=== PATIENT | female | born 1995 | race Hispanic/Latino ===

== ENCOUNTER 2022-06-18 18:16 | Emergency (ER) | payer OTHER, SELFPAY ==
--- OUTSIDE RECORDS SUMMARY | 2022-06-18 18:23 | XMS REPORT | Continuity of Care Document ---
:1995 Author Organization [facility] t Address [address] [place] [address] [address]. [address] [place] [address] Care Team Providers Name Role Phone Jaylen Ware Attending Clinician JAYLEN MARLOW Attending Clinician Unavailable Pilar Barajas MD Attending Clinician Ultrasound, [facility] Attending Clinician Unavailable Joel Walter MD Attending Clinician Severo Kim MD, [place] Attending Clinician [phone] JOEL WALTER Attending Clinician Unavailable Doctor Unassigned, [place] Attending Clinician Unavailable 3, [facility] Usg Room Attending Clinician Unavailable Kulwinder Guerra MD Attending Clinician Elyse Funk MD Attending Clinician ELYSE FUNK Attending Clinician Unavailable ELYSE FUNK Attending Clinician Unavailable Evi Paredes MD Attending Clinician Pilar Barajas MD Admitting Clinician Payers Payer Name Policy Type Policy Number Effective Date Expiration Date Jaya churchill [place] MELVINS [id number] 2019 HEALTH 00:00:00 Problems Condition Condition Condition Status Onset Resolution Last Treating Co mments Source Name Details Category Date Date Treatment Clinician Date Decreased Decreased Disease Active Uni vers platelet platelet 7-14 ity of count count 00:00: [address] Disease Active Univers (spontaneo (spontaneo 7-13 [place] vaginal [place] vaginal [place] delivery[place] [address] [place] [address] Disease Active Univers delivery delivery 7-13 ity of 00:00: [place] 00 Medical Branch Liveborn Liveborn Disease Active 2020-0 Unive rs infant, of , of 7-13 it y of twin twin 00:00: [place] , , 00 Me dical born in born in [facility] by vaginal by vaginal delivery delivery S/P tubal S/P tubal Disease Active 2020-0 Uni vers ligation ligation 7-13 ity of 00:00: [place] [facility] Obesity Obesity Disease Active 2020-0 Univers (BMI (BMI 7-12 ity of 30-39.9) 30-39.9) 00:00: [place] 00 Medical Branch 34 weeks 34 weeks Disease Active 2020-0 Unive rs gestation gestation 7-12 ity of of of 00:00: [place] 00 [facility] Branch Disease Active 2020-0 Univers labor in labor in 7-12 ity of third third 00:00: [place] trimester trimester 00 [facility] with with Branch delivery delivery Disease Active 2020-0 Univers premature premature 7-12 ity of rupture of rupture of 00:[place] membranes membranes 00 [facility] (PPROM) (PPROM) Branch with onset with onset of labor of labor within 24 within 24 hours of hours of rupture in rupture in third third trimester, trimester, antepartum antepartum Monochorio Monochorio Disease Active 2020-0 U nivers cydney cydney 4-06 ity of diamniotic diamniotic 00:00[place] twin twin 00 Medical gestation gestation Bran ch in second in second trimester trimester Twin Twin Disease Active 2020-0 Univers gestation gestation 3-23 ity of in second in second 00:[place], [place], 00 Me dical unspecifie unspecifie Br anch d multiple d multiple gestation gestation type type Rubella Rubella Disease Active 2020-0 Overview: Univ ers non-immune non-immune 1-14 Address i ty of status, status, 00:00: in PP. [place] antepartum antepartum 00 Me dical Branch Supervisio Supervisio Disease Active 2020-0 U nivers n of high n of high 1-13 ity of risk risk 00:00: [place] 00 [facility] in second in second Bran ch trimester trimester Multiparit Multiparit Disease Active 2020-0 U nivers y y 1-13 ity of 00:00: [address] Branch Overweight Overweight Disease Active 2020-0 U nivers (BMI (BMI 1-13 ity of 25.0-29.9) 25.0-29.9) 00:00: [facility] Anemia, Anemia, Disease Active Univers 8-18 it y of 00:00: [address] Nausea and Nausea and Disease Active U nivers vomiting vomiting 2-25 ity of during during 00:00: [place] 00 Medi hazel prior to prior to Branch 22 weeks 22 weeks gestation gestation Allergies, Adverse Reactions, Alerts Allergy Allergy Status Severity Reaction(s) Onset Inactive Treating Comm ents Source Name Type Date Date Clinician NO KNOWN Drug Active [facility] ALLERGIE Class ity of S [facility] Social History Social Habit Start Date Stop Date Quantity Comments Source ASSERTION 2019-07-10 [facility] 00:00:00 [facility] Exposure to Not sure [facility] SARS-CoV-2 [facility] (event) [facility] Alcohol intake 2020-02-26 2020-02-26 Ex-drinker [facility] 00:00:00 00:00:00 (finding) [facility] Tobacco use and 2020-02-26 2020-02-26 [facility] 00:00:00 [facility] Smoking Status Start Date Stop Date Source Never smoker [facility] Medications Ordered Filled Start Stop Current Ordering Indication Dosage Frequency Signature Comments Components Source Medication Medication Date Date Medication? Clinician (SIG) Name Name bisacodyL Yes 10mg 10 mg, Univer s (DULCOLAX) 02-25 Rectal, ity of suppository 20:15: KAREN [place] 10 mg 08 Starting [facility] 02/26/20 at 1515, Until Discontinu ed, Routine, Constipati on Yes [id number] 1{tbl} Take 1 Univers vitamin 02-25 [id number] tablet by ity o f w/FA tablet 00:00: mouth 00 daily. Medical Branch docusate Yes [id number] 240mg Take 1 Univers calcium 240 02-25 [id number] capsule by ity of mg capsule 00:00: mouth [place] 00 daily as Medical needed for Branch Constipati on. ferrous Yes [id number] 325mg Take 1 Univers sulfate 325 7-14 [id number] tablet by i ty of mg (65 mg 00:00: mouth 2 [place] iron) 00 (two) Medical tablet times Branch daily. ibuprofen 2020-0 Yes [id number] 600mg Take 1 Univers 600 mg 7-14 [id number] tablet by ity of tablet 00:00: mouth [place] 00 every 6 Medical (six) Branch hours as needed (Pain). Take with food or milk. 2020-0 Yes [id number] 1{tbl} Take 1 Univers vitamin -14 [id number] tablet by ity o f w/FA tablet 00:00: mouth [place] 00 daily. Medical Branch docusate 2020-0 Yes [id number] 240mg Take 1 Univers calcium 240 -14 [id number] capsule by ity of mg capsule 00:00: mouth [place] 00 daily as Medical needed for Branch Constipati on. ferrous 2020-0 Yes [id number] 325mg Take 1 Univers sulfate 325 -14 [id number] tablet by i ty of mg (65 mg 00:00: mouth 2 [place] iron) 00 (two) Medical tablet times Branch daily. ibuprofen 2020-0 Yes [id number] 600mg Take 1 Univers 600 mg 7-14 [id number] tablet by ity of tablet 00:00: mouth [place] 00 every 6 Medical (six) Branch hours as needed (Pain). Take with food or milk. naloxone 2019-0 2020- No .4mg 0.4 mg, Unive rs (NARCAN) 02-24 Slow IV ity of injection 15:10: 15:09 Push, PRN [place] 0.4 mg 19 :19 - SEE Medical INSTRUCTIO Branch NS, Starting Tue02/25/20 at 1010, Until Tue02/27/20 at 1009, Routine, Analgesia Recovery, PACU diphenhydrA 2019-0 2020- No 25mg 25 mg, Uni vers MINE 02-24 Slow IV ity of (BENADRYL) 15:10: 15:09 Push, [place] injection 18 :18 Q4HPRN, Medical 25 mg Starting Branch Tue02/25/20 at 1010, Until Tue02/26/20 at 1009, Routine, Itching, PACU bupivacaine 2020-0 Yes PRN, Univer s (preserv 02-24 Starting ity of free) 14:02: Tue [place] (SENSORCAIN 00 02/25/20 at Wi dical E MPF) 0.25 0902, Branch % (2.5 Until mg/mL) Discontinu injection ed, Routine, Intra-op sodium 2020-0 2020- No 30mL 30 mL, Univers citrate-cit 02-24 Oral, ity of lin acid 14:00: 12:50 ONCE, 1 [place] (BICITRA) 00 :00 dose, Mon Medic al 500-334 02/25/20 at Branch mg/5 mL 0900, solution 30 Routine mL HYDROcodone 2020-0 Yes 2{tbl} 2 tablet, Univers -acetaminop 02-24 Oral, ity of hen (NORCO 13:05: Q6HPRN, [place] 5) 5-325 mg 30 Starting Medi hazel tablet 2 Mon Branch tablet 02/25/20 at 0805, Until Discontinu ed, Routine, Pain (scale 7-10) HYDROcodone 2020-0 Yes 1{tbl} 1 tablet, Univers -acetaminop 02-24 Oral, ity of hen (NORCO 13:05: Q6HPRN, [place] 5) 5-325 mg 29 Starting Medi hazel tablet 1 Mon Branch tablet 02/25/20 at 0805, Until Discontinu ed, Routine, Pain (scale 4-6) rho(D) 2020-0 Yes 300ug 300 mcg, Univer s immune 02-24 Intramuscu ity of globulin 07:19: lar, ONCE, [place] (RHOGAM) 05 For 1 Medical syringe 300 dose, Branch mcg Conditiona l, Routine ibuprofen 2020-0 Yes 600mg 600 mg, Univ ers (IBU) 02-24 Oral, ity of tablet 600 07:19: Q6HPRN, [place] mg 00 Starting Medical Mon Branch 02/25/20 at 0219, Until Discontinu ed, Routine, Pain (scale 4-6) acetaminoph 2020-0 Yes 650mg 650 mg, Un barbara en 02-24 Oral, ity of (TYLENOL) 07:19: Q6HPRN, [place] tablet 650 00 Starting Medic al mg Mon Branch 02/25/20 at 0219, Until Discontinu ed, Routine, Pain (scale 1-3) diphenhydrA 2020-0 Yes 25mg 25 mg, Univ ers MINE 02-24 Oral, ity of (BENADRYL) 07:19: Q6HPRN, [place] tablet 25 00 Starting Medica l mg Mon Branch 02/25/20 at 021, Until Discontinu ed, Routine, Sleep, Itching diphenhydrA 2020-0 Yes 25mg 25 mg, IV U nivers MINE-0.9 % 7 Piggyback, ity of sod.chlr 07:19: Administer [place] (BENADRYL) 00 over 30 Medica l 25 mg/50 mL Minutes, Bran ch piggyback Q6HPRN, 25 mg Starting 02/25/20 at 021, Until Discontinu ed, Routine, Itching ondansetron 2020-0 Yes 4mg 4 mg, Slow Univers (ZOFRAN 7 IV Push, ity of (PF)) 07:19: Q8HPRN, [place] injection 4 00 Starting Medi hazel mg [place] [facility] 02/25/20 at 021, Until Discontinu ed, Routine, Nausea and Vomiting (N/V) simethicone 2020-0 Yes 160mg 160 mg, Un barbara (GAS RELIEF - Oral, ity of (SIMETHICON 07:19: PC+HSPRN, [place] E)) 00 Starting Medical chewable Mon Branch tablet 160 02/25/20 at mg 021, Until Discontinu ed, Routine, Gas docusate 2020-0 Yes 240mg 240 mg, Unive rs calcium 7- Oral, ity of (SURFAK) 07:19: QDAILYPRN, [place] capsule 240 00 Starting Medi hazel mg [facility] Branch 02/25/20 at 021, Until Discontinu ed, Routine, Constipati on magnesium 2020-0 Yes 30mL 30 mL, Univer s hydroxide 7-13 Oral, ity of (MILK OF 07:19: QDAILYPRN, [place] MAGNESIA) 00 Starting Medica l 400 mg/5 mL Mon [place] suspension 02/25/20 at 30 mL 218, Until Discontinu ed, Routine, Constipati on benzocaine- 2020-0 Yes Topical, Un barbara menthol 7-13 PRN, ity of (DERMOPLAST 07:19: [place] ) 20-0.5 % 00 Mon Medical topical 02/25/20 at Branch spray 021, Until Discontinu ed, Routine, Perineum discomfort LR 1000 mL 2020-0 2020- No at 125 Univ ers + oxytocin 02-24-13 mL/hr, IV ity of 20 units IV 02:00: 02:42 Infusion, [place] Solution 00 :00 ONCE, 1 Medical dose, [facility] 02/24/20 at 2100, Routine ibuprofen 2019- 2020- No 600mg 600 mg, Uni vers (IBU) 02-24 Oral, ity of tablet 600 01:54: 07:19 Q6HPRN, [place] mg 31 :05 Starting Medical [facility] 02/24/20 at 2054, Until Tue02/25/20 at 0219, Routine, Pain (scale 1-3) lactated 2020- No 500mL at 999 Unive rs ringers IV 02-23 mL/hr, 500 it y of infusion 16:00: 20:12 mL, IV [place] 500 mL 00 :00 Infusion, Medical ONCE, 1 Branch dose, [place] 02/24/20 at 1100, Routine ondansetron 2019- No 4mg 4 mg, Slow Univers (ZOFRAN 02-23 IV Push, ity of (PF)) 15:45: 21:32 ONCE, 1 [place] injection 4 00 :00 dose, [place] Med ical mg 02/24/20 at Branch 1045, Routine LR 1000 mL 2020- No 2mU/min at 6-120 Univers + oxytocin 02-2313 mL/hr, IV ity of 20 units IV 14:52: 07:19 Infusion, [place] Solution 22 :05 TITRATE, Medical Starting Branch [place] 02/24/20 at 0952, Until Tue02/25/20 at 0219, LAR[place] sodium 2020- No 30mL 30 mL, Univers citrate-cit 02-23 Oral, ity of lin acid 14:52: 20:11 PRE-PROCED [place] (BICITRA) 17 :00 URE ONCE, Medic al 500-334 1 dose, Branch mg/5 mL Starting solution 30 Sun mL 02/24/20 at 0952, Until Discontinu ed, Routine, Surgery/Pr ocedure D5W-LR IV 2019-0 2020- No 1000mL at 125 Uni vers infusion 02-23-13 mL/hr, IV ity o f 1,000 mL 14:45: 07:19 Infusion, [place] 00 :05 CONTINUOUS Medical , Starting Branch 02/24/20 at 0945, Until 02/25/20 at 0219, Routine proMETHazin 2019-0 Yes [id number] 25mg Take 1 Univers e 25 mg 2-10 tablet by ity of tablet 00:00: mouth [place] 00 every 4 Medical (four) Branch hours as needed for Nausea and Vomiting (N/V). 2019-0 Yes [id number] 1{packe Take 1 Univers vit 2-10 t} Packet by ity of 33-iron-fol 00:00: mouth [place] ic-dha 00 daily. Medical (SELECT-OB Branch + DHA) 29 mg iron-1 mg -250 mg combo pack proMETHazin 2019-0 Yes [id number] 25mg Take 1 Univers e 25 mg 2-10 tablet by ity of tablet 00:00: mouth [place] 00 every 4 Medical (four) Branch hours as needed for Nausea and Vomiting (N/V). 2019-0 Yes [id number] 1{packe Take 1 Univers vit 2-10 t} Packet by ity of 33-iron-fol 00:00: mouth [place] ic-dha 00 daily. Medical (SELECT-OB Branch + DHA) 29 mg iron-1 mg -250 mg combo pack proMETHazin 2019-0 Yes [id number] 25mg Take 1 Univers e 25 mg 2-10 tablet by ity of tablet 00:00: mouth [place] 00 every 4 Medical (four) Branch hours as needed for Nausea and Vomiting (N/V). 2019-0 Yes [id number] 1{packe Take 1 Univers vit 2-10 t} Packet by ity of 33-iron-fol 00:00: mouth [place] ic-dha 00 daily. Medical (SELECT-OB Branch + DHA) 29 mg iron-1 mg -250 mg combo pack proMETHazin 2020-0 Yes [id number] 25mg Take 1 Univers e 25 mg 2-10 tablet by ity of tablet 00:00: mouth [place] 00 every 4 Medical (four) Branch hours as needed for Nausea and Vomiting (N/V). 2019-0 Yes [id number] 1{packe Take 1 Univers vit 2-10 t} Packet by ity of 33-iron-fol 00:00: mouth [place] ic-dha 00 daily. Medical (SELECT-OB Branch + DHA) 29 mg iron-1 mg -250 mg combo pack proMETHazin 2020-0 Yes [id number] 25mg Take 1 Univers e 25 mg 2-10 tablet by ity of tablet 00:00: mouth [place] 00 every 4 Medical (four) Branch hours as needed for Nausea and Vomiting (N/V). 2019-0 Yes [id number] 1{packe Take 1 Univers vit 2-10 t} Packet by ity of 33-iron-fol 00:00: mouth [place] ic-dha 00 daily. Medical (SELECT-OB Branch + DHA) 29 mg iron-1 mg -250 mg combo pack proMETHazin 2020-0 Yes [id number] 25mg Take 1 Univers e 25 mg 2-10 tablet by ity of tablet 00:00: mouth [place] 00 every 4 Medical (four) Branch hours as needed for Nausea and Vomiting (N/V). 0 Yes [id number] 1{packe Take 1 Univers vit 2-10 t} Packet by ity of 33-iron-fol 00:00: mouth [place] ic-dha 00 daily. Medical (SELECT-OB Branch + DHA) 29 mg iron-1 mg -250 mg combo pack proMETHazin 2020-0 Yes [id number] 25mg Take 1 Univers e 25 mg 2-10 tablet by ity of tablet 00:00: mouth [place] 00 every 4 Medical (four) Branch hours as needed for Nausea and Vomiting (N/V). 0 Yes [id number] 1{packe Take 1 Univers vit 2-10 t} Packet by ity of 33-iron-fol 00:00: mouth [place] ic-dha 00 daily. Medical (SELECT-OB Branch + DHA) 29 mg iron-1 mg -250 mg combo pack proMETHazin 2020-0 Yes [id number] 25mg Take 1 Univers e 25 mg 2-10 tablet by ity of tablet 00:00: mouth [place] 00 every 4 Medical (four) Branch hours as needed for Nausea and Vomiting (N/V). proMETHazin 2020-0 Yes [id number] 25mg Take 1 Univers e 25 mg 2-10 tablet by ity of tablet 00:00: mouth [place] 00 every 4 Medical (four) Branch hours as needed for Nausea and Vomiting (N/V). 2019-0 Yes [id number] 1{packe Take 1 Univers vit 2-10 t} Packet by ity of 33-iron-fol 00:00: mouth [place] ic-dha 00 daily. Medical (SELECT-OB Branch + DHA) 29 mg iron-1 mg -250 mg combo pack proMETHazin 2020-0 Yes [id number] 25mg Take 1 Univers e 25 mg 2-10 tablet by ity of tablet 00:00: mouth [place] 00 every 4 Medical (four) Branch hours as needed for Nausea and Vomiting (N/V). 2020-0 Yes [id number] 1{packe Take 1 Univers vit 2-10 t} Packet by ity of 33-iron-fol 00:00: mouth [place] ic-dha 00 daily. Medical (SELECT-OB Branch + DHA) 29 mg iron-1 mg -250 mg combo pack 2020-0 Yes [id number] 1{packe Take 1 Univers vit 2-10 t} Packet by ity of 33-iron-fol 00:00: mouth [place] ic-dha 00 daily. Medical (SELECT-OB Branch + DHA) 29 mg iron-1 mg -250 mg combo pack proMETHazin 2020-0 Yes [id number] 25mg Take 1 Univers e 25 mg 2-10 tablet by ity of tablet 00:00: mouth [place] 00 every 4 Medical (four) Branch hours as needed for Nausea and Vomiting (N/V). 2020-0 Yes [id number] 1{packe Take 1 Univers vit 2-10 t} Packet by ity of 33-iron-fol 00:00: mouth [place] ic-dha 00 daily. Medical (SELECT-OB Branch + DHA) 29 mg iron-1 mg -250 mg combo pack proMETHazin 2020-0 Yes [id number] 25mg Take 1 Univers e 25 mg 2-10 tablet by ity of tablet 00:00: mouth [place] 00 every 4 Medical (four) Branch hours as needed for Nausea and Vomiting (N/V). 2020-0 Yes [id number] 1{packe Take 1 Univers vit 2-10 t} Packet by ity of 33-iron-fol 00:00: mouth [place] ic-dha 00 daily. Medical (SELECT-OB Branch + DHA) 29 mg iron-1 mg -250 mg combo pack proMETHazin 2020-0 Yes [id number] 25mg Take 1 Univers e 25 mg 2-10 tablet by ity of tablet 00:00: mouth [place] 00 every 4 Medical (four) Branch hours as needed for Nausea and Vomiting (N/V). 2019-0 Yes [id number] 1{packe Take 1 Univers vit 2-10 t} Packet by ity of 33-iron-fol 00:00: mouth [place] ic-dha 00 daily. Medical (SELECT-OB Branch + DHA) 29 mg iron-1 mg -250 mg combo pack proMETHazin 2020-0 Yes [id number] 25mg Take 1 Univers e 25 mg 2-10 tablet by ity of tablet 00:00: mouth [place] 00 every 4 Medical (four) Branch hours as needed for Nausea and Vomiting (N/V). 2019- Yes [id number] 1{packe Take 1 Univers vit 2-10 t} Packet by ity of 33-iron-fol 00:00: mouth [place] ic-dha 00 daily. Medical (SELECT-OB Branch + DHA) 29 mg iron-1 mg -250 mg combo pack proMETHazin 2020-0 Yes [id number] 25mg Take 1 Univers e 25 mg 2-10 tablet by ity of tablet 00:00: mouth [place] 00 every 4 Medical (four) Branch hours as needed for Nausea and Vomiting (N/V). Yes [id number] 1{packe Take 1 Univers vit 2-10 t} Packet by ity of 33-iron-fol 00:00: mouth [place] ic-dha 00 daily. Medical (SELECT-OB Branch + DHA) 29 mg iron-1 mg -250 mg combo pack proMETHazin 2020-0 Yes [id number] 25mg Take 1 Univers e 25 mg 2-10 tablet by ity of tablet 00:00: mouth [place] 00 every 4 Medical (four) Branch hours as needed for Nausea and Vomiting (N/V). 2019-0 Yes [id number] 1{packe Take 1 Univers vit 2-10 t} Packet by ity of 33-iron-fol 00:00: mouth [place] ic-dha 00 daily. Medical (SELECT-OB Branch + DHA) 29 mg iron-1 mg -250 mg combo pack proMETHazin 2020-0 Yes [id number] 25mg Take 1 Univers e 25 mg 2-10 tablet by ity of tablet 00:00: mouth [place] 00 every 4 Medical (four) Branch hours as needed for Nausea and Vomiting (N/V). 2019-0 Yes [id number] 1{packe Take 1 Univers vit 2-10 t} Packet by ity of 33-iron-fol 00:00: mouth [place] ic-dha 00 daily. Medical (SELECT-OB Branch + DHA) 29 mg iron-1 mg -250 mg combo pack proMETHazin 2020-0 Yes [id number] 25mg Take 1 Univers e 25 mg 2-10 tablet by ity of tablet 00:00: mouth [place] 00 every 4 Medical (four) Branch hours as needed for Nausea and Vomiting (N/V). 2019-0 Yes [id number] 1{packe Take 1 Univers vit 2-10 t} Packet by ity of 33-iron-fol 00:00: mouth [place] ic-dha 00 daily. Medical (SELECT-OB Branch + DHA) 29 mg iron-1 mg -250 mg combo pack proMETHazin 2020-0 Yes [id number] 25mg Take 1 Univers e 25 mg 2-10 tablet by ity of tablet 00:00: mouth [place] 00 every 4 Medical (four) Branch hours as needed for Nausea and Vomiting (N/V). 2019-0 Yes [id number] 1{packe Take 1 Univers vit 2-10 t} Packet by ity of 33-iron-fol 00:00: mouth [place] ic-dha 00 daily. Medical (SELECT-OB Branch + DHA) 29 mg iron-1 mg -250 mg combo pack proMETHazin 2020-0 Yes [id number] 25mg Take 1 Univers e 25 mg 2-10 tablet by ity of tablet 00:00: mouth [place] 00 every 4 Medical (four) Branch hours as needed for Nausea and Vomiting (N/V). 2019-0 Yes [id number] 1{packe Take 1 Univers vit 2-10 t} Packet by ity of 33-iron-fol 00:00: mouth [place] ic-dha 00 daily. Medical (SELECT-OB Branch + DHA) 29 mg iron-1 mg -250 mg combo pack proMETHazin 2020-0 Yes [id number] 25mg Take 1 Univers e 25 mg 2-10 tablet by ity of tablet 00:00: mouth [place] 00 every 4 Medical (four) Branch hours as needed for Nausea and Vomiting (N/V). 2019-0 Yes [id number] 1{packe Take 1 Univers vit 2-10 t} Packet by ity of 33-iron-fol 00:00: mouth [place] ic-dha 00 daily. Medical (SELECT-OB Branch + DHA) 29 mg iron-1 mg -250 mg combo pack proMETHazin 2020-0 Yes [id number] 25mg Take 1 Univers e 25 mg 2-10 tablet by ity of tablet 00:00: mouth [place] 00 every 4 Medical (four) Branch hours as needed for Nausea and Vomiting (N/V). 2019-0 Yes [id number] 1{packe Take 1 Univers vit 2-10 t} Packet by ity of 33-iron-fol 00:00: mouth [place] ic-dha 00 daily. Medical (SELECT-OB Branch + DHA) 29 mg iron-1 mg -250 mg combo pack proMETHazin 2020-0 Yes [id number] 25mg Take 1 Univers e 25 mg 2-10 tablet by ity of tablet 00:00: mouth [place] 00 every 4 Medical (four) Branch hours as needed for Nausea and Vomiting (N/V). 2019-0 Yes [id number] 1{packe Take 1 Univers vit 2-10 t} Packet by ity of 33-iron-fol 00:00: mouth [place] ic-dha 00 daily. Medical (SELECT-OB Branch + DHA) 29 mg iron-1 mg -250 mg combo pack proMETHazin 2020-0 Yes [id number] 25mg Take 1 Univers e 25 mg 2-10 tablet by ity of tablet 00:00: mouth [place] 00 every 4 Medical (four) Branch hours as needed for Nausea and Vomiting (N/V). 2019-0 Yes [id number] 1{packe Take 1 Univers vit 2-10 t} Packet by ity of 33-iron-fol 00:00: mouth [place] ic-dha 00 daily. Medical (SELECT-OB Branch + DHA) 29 mg iron-1 mg -250 mg combo pack proMETHazin 2020-0 Yes [id number] 25mg Take 1 Univers e 25 mg 2-10 tablet by ity of tablet 00:00: mouth [place] 00 every 4 Medical (four) Branch hours as needed for Nausea and Vomiting (N/V). 2020-0 Yes [id number] 1{packe Take 1 Univers vit 2-10 t} Packet by ity of 33-iron-fol 00:00: mouth [place] ic-dha 00 daily. Medical (SELECT-OB Branch + DHA) 29 mg iron-1 mg -250 mg combo pack proMETHazin 2020-0 Yes [id number] 25mg Take 1 Univers e 25 mg 2-10 tablet by ity of tablet 00:00: mouth [place] 00 every 4 Medical (four) Branch hours as needed for Nausea and Vomiting (N/V). 2019-0 Yes [id number] 1{packe Take 1 Univers vit 2-10 t} Packet by ity of 33-iron-fol 00:00: mouth [place] ic-dha 00 daily. Medical (SELECT-OB Branch + DHA) 29 mg iron-1 mg -250 mg combo pack proMETHazin 2020-0 Yes [id number] 25mg Take 1 Univers e 25 mg 2-10 tablet by ity of tablet 00:00: mouth [place] 00 every 4 Medical (four) Branch hours as needed for Nausea and Vomiting (N/V). 2019-0 Yes [id number] 1{packe Take 1 Univers vit 2-10 t} Packet by ity of 33-iron-fol 00:00: mouth [place] ic-dha 00 daily. Medical (SELECT-OB Branch + DHA) 29 mg iron-1 mg -250 mg combo pack proMETHazin 2020-0 Yes [id number] 25mg Take 1 Univers e 25 mg 2-10 tablet by ity of tablet 00:00: mouth [place] 00 every 4 Medical (four) Branch hours as needed for Nausea and Vomiting (N/V). 2019-0 Yes [id number] 1{packe Take 1 Univers vit 2-10 t} Packet by ity of 33-iron-fol 00:00: mouth [place] ic-dha 00 daily. Medical (SELECT-OB Branch + DHA) 29 mg iron-1 mg -250 mg combo pack proMETHazin 2020-0 Yes [id number] 25mg Take 1 Univers e 25 mg 2-10 tablet by ity of tablet 00:00: mouth [place] 00 every 4 Medical (four) Branch hours as needed for Nausea and Vomiting (N/V). 2020-0 Yes [id number] 1{packe Take 1 Univers vit 2-10 t} Packet by ity of 33-iron-fol 00:00: mouth [place] ic-dha 00 daily. Medical (SELECT-OB Branch + DHA) 29 mg iron-1 mg -250 mg combo pack proMETHazin 2020-0 Yes [id number] 25mg Take 1 Univers e 25 mg 2-10 tablet by ity of tablet 00:00: mouth [place] 00 every 4 Medical (four) Branch hours as needed for Nausea and Vomiting (N/V). Yes [id number] 1{packe Take 1 Univers vit 2-10 t} Packet by ity of 33-iron-fol 00:00: mouth [place] ic-dha 00 daily. Medical (SELECT-OB Branch + DHA) 29 mg iron-1 mg -250 mg combo pack proMETHazin Yes [id number] 25mg Take 1 Univers e 25 mg 2-10 tablet by ity of tablet 00:00: mouth [place] 00 every 4 Medical (four) Branch hours as needed for Nausea and Vomiting (N/V). Yes [id number] 1{packe Take 1 Univers vit 2-10 t} Packet by ity of 33-iron-fol 00:00: mouth [place] ic-dha 00 daily. Medical (SELECT-OB Branch + DHA) 29 mg iron-1 mg -250 mg combo pack proMETHazin 2020- No [id number] 25mg Take 1 Univers e 25 mg 2-10 07-14 tablet by ity of tablet 00:00: 00:00 mouth [place] 00 :00 every 4 Medical (four) Branch hours as needed for Nausea and Vomiting (N/V). 2020- No [id number] 1{packe Take 1 Univers vit 2-10 07-14 t} Packet by ity of 33-iron-fol 00:00: 00:00 [place] ic-dha 00 :00 daily. Medical (SELECT-OB Branch + DHA) 29 mg iron-1 mg -250 mg combo pack ferrous 2020- No 325mg Take 1 Univer s sulfate 325 8-18 02-10 tablet by it y of mg (65 mg 00:00: 00:00 mouth [place] iron) 00 :00 daily. Medical tablet Branch Yes [id number] 1{tbl} Take 1 Tab Univers multivitami 2-25 09 by mouth [place]y of [place] ( [place] 00 Medical tablet Branch Yes [id number] 1{tbl} Take 1 Tab Univers multivitami 2-25 09 by mouth [place]y of [place] ( [place] 00 Medical tablet Branch Yes [id number] 1{tbl} Take 1 Tab Univers multivitami 2-25 09 by mouth ity of [place] ( [place] 00 Medical tablet Branch Yes [id number] 1{tbl} Take 1 Tab Univers multivitami 2-25 09 by mouth ity of n ( [place] 00 Medical tablet Branch Yes [id number] 1{tbl} Take 1 Tab Univers multivitami 2-25 09 by mouth ity of n ( [place] 00 Medical tablet Branch Yes [id number] 1{tbl} Take 1 Tab Univers multivitami 2-25 09 by mouth ity of [place] ( [place] 00 Medical tablet Kevin Yes [id number] 1{tbl} Take 1 Tab Univers multivitami 2-25 09 by mouth ity of n ( [place] 00 Medical tablet Kevin Yes [id number] 1{tbl} Take 1 Tab Univers multivitami 2-25 09 by mouth ity of [place] ( [place] 00 Medical tablet Kevin Yes [id number] 1{tbl} Take 1 Tab Univers multivitami 2-25 09 by mouth ity of [place] ( [place] 00 Medical tablet Kevin Yes [id number] 1{tbl} Take 1 Tab Univers multivitami 2-25 09 by mouth ity of [place] ( [place]. [place] 00 Medical tablet Branch Yes [id number] 1{tbl} Take 1 Tab Univers multivitami 2-25 09 by mouth ity of n ( [place]. [place] VIT[place] 00 Medical tablet Branch Yes [id number] 1{tbl} Take 1 Tab Univers multivitami 2-25 09 by mouth ity of n ( [place]. [place] 00 Medical tablet Branch Yes [id number] 1{tbl} Take 1 Tab Univers multivitami 2-25 09 by mouth ity of n ( [place]. [place] 00 Medical tablet Branch Yes [id number] 1{tbl} Take 1 Tab Univers multivitami 2-25 09 by mouth ity of n ( [place]. [place] 00 Medical tablet Branch Yes [id number] 1{tbl} Take 1 Tab Univers multivitami 2-25 09 by mouth ity of n ( [place]. [place] 00 Medical tablet Branch Yes [id number] 1{tbl} Take 1 Tab Univers multivitami 2-25 09 by mouth ity of n ( [place]. [place] 00 Medical tablet Branch Yes [id number] 1{tbl} Take 1 Tab Univers multivitami 2-25 09 by mouth ity of n ( [place]. [place] 00 Medical tablet Branch Yes [id number] 1{tbl} Take 1 Tab Univers multivitami 2-25 09 by mouth ity of n ( [place]. [place] 00 Medical tablet Branch Yes [id number] 1{tbl} Take 1 Tab Univers multivitami 2-25 09 by mouth ity of n ( [place]. [place] 00 Medical tablet Branch Yes [id number] 1{tbl} Take 1 Tab Univers multivitami 2-25 09 by mouth ity of n ( [place]. [place] 00 Medical tablet Branch Yes [id number] 1{tbl} Take 1 Tab Univers multivitami 2-25 09 by mouth ity of n ( [place]: [place]. [place] VIT[place] 00 Medical tablet Branch Yes [id number] 1{tbl} Take 1 Tab Univers multivitami 2-25 09 by mouth ity of n ( [place]: [place]. [place]IT[place] 00 Medical tablet Branch Yes [id number] 1{tbl} Take 1 Tab Univers multivitami 2-25 09 by mouth ity of n ( 00:[place]: [place]. [place] 00 Medical tablet Branch Yes [id number] 1{tbl} Take 1 Tab Univers multivitami 2-25 09 by mouth ity of n ( [place]: [place]. [place]IT[place] 00 Medical tablet Kevin Yes [id number] 1{tbl} Take 1 Tab Univers multivitami 2-25 09 by mouth ity of n ( [place]: [place]. [place] 00 Medical tablet Branch Yes [id number] 1{tbl} Take 1 Tab Univers multivitami 2-25 09 by mouth ity of n ( 00:[place]: [place]. [place] VIT[place]IN) 00 Medical tablet Branch Yes [id number] 1{tbl} Take 1 Tab Univers multivitami 2-25 09 by mouth ity of n ( 00:[place]: [place]. [place]IT[place]IN[place] 00 Medical tablet Kevin Yes [id number] 1{tbl} Take 1 Tab Univers multivitami 2-25 09 by mouth ity of n ( 00:[place]: [place]. [place]IT[place] 00 Medical tablet Kevin Yes [id number] 1{tbl} Take 1 Tab Univers multivitami 2-25 09 by mouth ity of n ( 00:[place]: [place]. [place] 00 Medical tablet Kevin Yes [id number] 1{tbl} Take 1 Tab Univers multivitami 2-25 09 by mouth ity of n ( 00:[place]: [place]. [place] 00 Medical tablet [place] Yes [id number] 1{tbl} Take 1 Tab Univers multivitami 2-25 09 by mouth ity of n ( [place]: [place]. [place] 00 Medical tablet Kevin 2020- No [id number] 1{tbl} Take 1 Tab Univers multivitami 2-25 07-14 09 by mouth ity of n ( 00:00: 00:00 daily. [place] VITAMIN) 00 :00 [facility] Immunizations Ordered Filled Immunization Date Status Comments [facility] e Immunization Name Name TDAP (ADACEL) 2020-01-21 Completed [place] of VACCINE 00:00:00 [facility] TDAP (ADACEL) 2020-01-21 Completed University of VACCINE 00:00:00 [place] [facility] TDAP (ADACEL) 2020-01-21 Completed University of VACCINE 00:00:00 [place] [facility] TDAP (ADACEL) 2020-01-21 Completed University of VACCINE 00:00:00 [place] [facility] TDAP (ADACEL) 2020-01-21 Completed University of VACCINE 00:00:00 [place] [facility] TDAP (ADACEL) 2020-01-21 Completed University of VACCINE 00:00:00 [place] [facility] TDAP (ADACEL) 2020-01-21 Completed University of VACCINE 00:00:00 [place] [facility] TDAP (ADACEL) 2020-01-21 Completed University of VACCINE 00:00:00 [place] [facility] TDAP (ADACEL) 2020-01-21 Completed University of VACCINE 00:00:00 [place] [facility] TDAP (ADACEL) 2020-01-21 Completed University of VACCINE 00:00:00 [facility] TDAP (ADACEL) 2020-01-21 Completed University of VACCINE 00:00:00 [facility] Branch Tdap 2016-01-13 Completed University of 00:00:00 [place] [facility] Tdap 2016-01-13 Completed University of 00:00:00 [place] [facility] Tdap 2016-01-13 Completed University of 00:00:00 [place] [facility] Tdap 2016-01-13 Completed University of 00:00:00 [place] [facility] Tdap 2016-01-13 Completed University of 00:00:00 [place] [facility] Tdap 2016-01-13 Completed University of 00:00:00 [facility] Branch Tdap 2016-01-13 Completed University of 00:00:00 [place] [facility] Tdap 2016-01-13 Completed University of 00:00:00 [place] [facility] Tdap 2016-01-13 Completed University of 00:00:00 [place] [facility] Tdap 2016-01-13 Completed University of 00:00:00 [place] [facility] Tdap 2016-01-13 Completed University of 00:00:00 [place] [facility] Tdap 2016-01-13 Completed University of 00:00:00 [place] [facility] Tdap 2016-01-13 Completed University of 00:00:00 [facility] Branch Tdap 2016-01-13 Completed University of 00:00:00 [facility] Branch Tdap 2016-01-13 Completed University of 00:00:00 [place] [facility] Tdap 2016-01-13 Completed University of 00:00:00 [facility] Branch Tdap 2016-01-13 Completed University of 00:00:00 [facility] Branch Tdap 2016-01-13 Completed University of 00:00:00 [place] [facility] Tdap 2016-01-13 Completed University of 00:00:00 [place] [facility] Tdap 2016-01-13 Completed University of 00:00:00 [facility] Branch Tdap 2016-01-13 Completed University of 00:00:00 [facility] Branch TDAP 2016-01-13 Completed University of 00:00:00 [place] [facility] TDAP 2016-01-13 Completed University of 00:00:00 [facility] Branch TDAP 2016-01-13 Completed University of 00:00:00 [facility] Branch Tdap 2016-01-13 Completed University of 00:00:00 [facility] Branch TDAP 2016-01-13 Completed University of 00:00:00 [facility] TDAP 2016-01-13 Completed University of 00:00:00 [facility] Branch Tdap 2016-01-13 Completed University of 00:00:00 [facility] Tdap 2016-01-13 Completed University of 00:00:00 [facility] Tdap 2016-01-13 Completed University of 00:00:00 [facility] Tdap 2016-01-13 Completed University of 00:00:00 [facility] Tdap 2016-01-13 Completed University of 00:00:00 [facility] Tdap 2016-01-13 Completed University of 00:00:00 [facility] Vital Signs Vital Name Observation Time Observation Value Comments Source Systolic blood 2020-02-26 21:00:00 120 mm[Hg] Univer sity of pressure [facility] Diastolic blood 2020-02-26 21:00:00 68 mm[Hg] Unive rsity of pressure [facility] Heart rate 2020-02-26 21:00:00 85 /min [facility] Body temperature 2020-02-26 21:00:00 36.44 Niru Univ ersity [facility] Respiratory rate 2020-02-26 21:00:00 18 /min [facility] saturation in 2020-02-26 21:00:00 98 /min [facility] Arterial blood by [facility] Pulse oximetry Branch Body height 2020-02-24 14:00:00 154.9 cm [facility] Body weight 2020-02-24 14:00:00 72.576 kg Universi ty of [place] [facility] BMI 2020-02-24 14:00:00 30.25 kg/m2 Universi ty of [place] [facility] Systolic blood 2020-02-12 19:11:00 120 mm[Hg] Univer sity of pressure [place] [facility] Diastolic blood 2020-02-12 19:11:00 67 mm[Hg] Unive rsity of pressure [place] [facility] Heart rate 2020-02-12 19:11:00 81 /min Universi ty of [place] [facility] Body temperature 2020-02-12 19:11:00 36.61 Niru Univ ersity of [place] [facility] Respiratory rate 2020-02-12 19:11:00 16 /min Univ ersity of [place] [facility] Body height 2020-02-12 19:11:00 154.9 cm Universi ty of [place] [facility] Body weight 2020-02-12 19:11:00 72.689 kg [facility]i [facility] [place] [facility] BMI 2020-02-12 19:11:00 30.28 kg/m2 Universi ty [facility] [place] [facility] Systolic blood 2020-01-21 20:03:00 108 mm[Hg] Univer sity of pressure [place] [facility] Diastolic blood 2020-01-21 20:03:00 78 mm[Hg] Unive rsity of pressure [place] [facility] Heart rate 2020-01-21 20:03:00 92 /min Universi ty [facility] [place] [facility] Body temperature 2020-01-21 20:03:00 36.56 Niru Univ ersity of [place] [facility] Respiratory rate 2020-01-21 20:03:00 16 /min Univ ersity of [place] [facility] Body height 2020-01-21 20:03:00 154.9 cm Universi ty of [place] [facility] Body weight 2020-01-21 20:03:00 70.421 kg Universi ty of [place] [facility] BMI 2020-01-21 20:03:00 29.33 kg/m2 Universi ty [facility] [place] [facility] Diastolic blood 2019-11-19 18:11:00 71 mm[Hg] Unive rsity of pressure [place] [facility] Heart rate 2019-11-19 18:11:00 83 /min Universi ty of [place] [facility] Body temperature 2019-11-19 18:11:00 36.72 Niru Univ ersity of [place] [facility] Respiratory rate 2019-11-19 18:11:00 16 /min Univ ersity of [place] [facility] Body height 2019-11-19 18:11:00 154.9 cm Universi ty of [place] [facility] Body weight 2019-11-19 18:11:00 67.586 kg Universi ty of [place] [facility] BMI 2019-11-19 18:11:00 28.15 kg/m2 Universi ty of [place] [facility] Systolic blood 2019-11-19 18:11:00 124 mm[Hg] Univer sity of pressure [facility] Branch Systolic blood 2019-11-05 19:47:00 125 mm[Hg] Univer sity of pressure [place] [facility] Diastolic blood 2019-11-05 19:47:00 78 mm[Hg] Unive rsity of pressure [facility] Branch Heart rate 2019-11-05 19:47:00 100 /min Universi ty of [facility] Body temperature 2019-11-05 19:47:00 36.39 Niru Univ ersity of [facility] Branch Respiratory rate 2019-11-05 19:47:00 16 /min Univ ersity of [facility] Branch Body height 2019-11-05 19:47:00 154.9 cm Universi ty of [place] [facility] Body weight 2019-11-05 19:47:00 64.553 kg [facility]i ty [facility] [place] [facility] BMI 2019-11-05 19:47:00 26.89 kg/m2 [facility] [place] [facility] Systolic blood 2019-09-24 19:25:00 102 mm[Hg] Univer sity of pressure [place] [facility] Diastolic blood 2019-09-24 19:25:00 66 mm[Hg] Unive rsity of pressure [facility] Branch Heart rate 2019-09-24 19:25:00 88 /min Universi ty of [place] [facility] Body temperature 2019-09-24 19:25:00 36.78 Niru Univ ersity of [facility] Branch Respiratory rate 2019-09-24 19:25:00 16 /min Univ ersity of [facility] Branch Body height 2019-09-24 19:25:00 152.4 cm Universi ty of [place] [facility] Body weight 2019-09-24 19:25:00 66.339 kg [facility]i ty [facility] [place] [facility] BMI 2019-09-24 19:25:00 28.56 kg/m2 [facility] [place] [facility] Procedures Procedure Date / Time Performing Clinician Source Performed TUBAL LIGATION 2020-02-25 12:39:00 Chele Hanna [facility] CBC WITH DIFFERENTIAL 2020-02-25 09:05:00 Christiano Finn [facility] VENOUS CORD GAS 2020-02-25 01:30:00 [facility] OR FOR DOUBLE SET UP 2020-02-25 00:47:00 Kulwinder Guerra [facility] DELIVERY [facility] CBC WITH DIFFERENTIAL 2020-02-24 23:35:00 Ángela Zeng [facility] HEPATITIS B SURFACE 2020-02-24 15:02:00 Kalyani Toro Chew [facility] ANTIGEN [facility] HIV 1/2 AG-AB WITH 2020-02-24 15:02:00 Kalyani Toro [facility] REFLEX [facility] GALV ONLY - SYPHILIS 2020-02-24 15:02:00 Muna Sparrow [facility] IGG/IGM [facility] HB ABO GROUPING 2020-02-24 14:47:00 Kalyani Toro Chew [facility] RHO (D) IMMUNE GLOBULIN 2020-02-24 14:47:[address] [facility] COVID-19 (ID NOW RAPID 2020-02-24 13:05:00 [facility]) [facility] NON-STRESS TEST 2020-02-12 20:03:34 Jaylen Marlow [facility] POCT URINALYSIS 2020-02-12 19:12:00 Jaylen Marlow [facility] POCT URINALYSIS 2020-01-21 20:03:00 Jaylen Marlow [facility] TDAP (ADACEL) 2020-01-21 19:57:21 Jaylen Marlow [facility] IMMUNIZATION [facility] STERILIZATION CONSENT 2020-01-21 05:01:00 Doctor Unassigned, No [facility] FORM Name Medical Branch SECOND AND THIRD 2019-11-20 20:52:00 Jaylen Marlow [facility] TRIMESTER ULTRASOUND [facility] SECOND AND THIRD 2019-11-20 20:39:00 Jaylen Marlow [facility] TRIMESTER ULTRASOUND [facility] POCT URINALYSIS 2019-11-19 18:15:00 Jaylen Marlow [facility] POCT URINALYSIS 2019-11-05 19:51:00 Jaylen Marlow [facility] SECOND AND THIRD 2019-10-15 17:28:00 Jaylen Marlow [facility] TRIMESTER ULTRASOUND [facility] POCT URINALYSIS 2019-09-24 19:27:00 Jaylen Marlow [facility] Encounters Start End Encounter Admission Attending Care Care Encounter Source Date/Time Date/Time Type Type Clinicians Facility Department ID 2021-06-12 Outpatient [facility] [id number] Univers 06:12:42 ity [facility] 2020-04-02 2020-04-02 Telephone [place] [facility] [id number] Univers 00:00:00 00:00:00 Jaylen Au [id number] 4[facility]2.7.2.686 [place] MATERNAL [id number] [facility] ical & CHILD [address] [place] [address] 2020-03-24 2020-03-24 Outpatient Roe MARLOW [facility] [id number] Univers 08:45:00 08:45:00 JAYLEN cazares o f [facility] 2020-02-24 2020-02-26 [facility] Jenn INDIGO 1.2.840.114 [id number] Univers 07:48:00 18:03:00 Encounter Pilarmariel [id number] 4.2.7.2.686 [place] [id number] [address] 2020-02-14 2020-02-14 Outpatient Roe MARLOW [facility] [id number] Univers 14:30:00 14:30:00 JAYLEN cazares o f [facility] 2020-02-13 2020-02-13 Abstract [place] [facility] 1.2.840.114 [id number] Univers 00:00:00 00:00:00 Jaylen Au PET AMBASSADOR [id number] ity of REGIONAL 4.2.7.2.686 [place] MATERNAL [id number] [facility] & [address] 2020-02-12 2020-02-12 [facility] 1.2.840.114 [id number] Univers 14:07:26 14:54:41 Roshunda R PET AMBASSADOR 350.1.13.10 ity of Visit REGIONAL 4.2.7.2.686 [place] MATERNAL [id number] [address] 2020-02-12 2020-02-12 Consulting Senior Practice Director Ultrasound, [facility] 1.2 .840.114 [id number] Univers 12:58:25 13:58:25 Visit Joel Walter PET AMBASSADOR [id number] ity of [place] REGIONAL 4.2.7.2 .686 [place] MATERNAL [id number] [facility] & CHILD [address] [place] [address] 2020-02-12 2020-02-12 [facility] [id number] Univers 13:00:00 13:00:00 JOEL cazares [facility] 2020-02-04 2020-02-04 [facility] [id number] Univers 14:30:00 14:30:00 JAYLEN cazares o dolores [facility] 2020-01-29 2020-01-29 Outpatient Feng WALTER [facility] [id number] Univers 13:00:00 13:00:00 JOEL cazares [facility] 2020-01-21 2020-01-21 [facility] 1.2.840.114 [id number] Univers 14:49:02 16:01:01 Roshunda R PET AMBASSADOR [id number] ity of Visit REGIONAL 4.2.7.2.686 [place] MATERNAL [id number] [address] 2020-01-21 2020-01-21 [facility] [id number] Univers 14:45:00 14:45:00 ROSHUNDA ity o f [facility] 2020-01-21 2020-01-21 Orders Doctor INDIGO 1.2.840.114 [id number] Univers 00:00:00 00:00:00 Only Unassigned, CB 350.1.13.10 ity of [facility] 42.7.2.686 [place] [id number] [address] 2020-01-16 2020-01-16 [facility] 1.2.840.114 [id number] Univers 00:00:00 00:00:00 Jaylen R PET AMBASSADOR 350.1.13.10 ity of [address]686 [place] MATERNAL [id number] Med ical & CHILD [address] [place] [address] 2020-01-15 2020-01-15 Outpatient P KEENA [facility] [id number] Univers 14:45:00 14:45:00 JOEL ming [facility] 2020-01-02 2020-01-02 [facility] [id number] Univers 13:45:00 13:45:00 JAYLEN bernal [facility] 2020-01-01 2020-01-01 Outpatient P KEENA [facility] [id number] Univers 13:00:00 13:00:00 [facility] 2019-12-19 2019-12-19 [facility] 1.2.840.114 [id number] Univers 00:00:00 00:00:00 Jaylen Au PET AMBASSADOR 350.1.13.10 ity [place] [id number] [place] MATERNAL [id number] Med ical & CHILD [address] [place] [address] 2019-12-18 2019-12-18 [facility] [id number] Univers 14:45:00 14:45:00 JAYLEN cazares o dolores [facility] 2019-12-18 2019-12-18 Consulting Senior Practice Director Ultrasound, [facility] 1.2 .840.114 [id number] Univers 13:33:05 14:37:27 Visit Joel Walter PET AMBASSADOR 350.1.13.10 ity of [place] [id number] [place] MATERNAL [id number] Med ical & CHILD [address] [facility] 2019-12-18 2019-12-18 Telemedici [place] [facility] 1.2.840.114 [id number] Univers 11:03:49 11:18:49 ne Visit Kaylameme Au PET AMBASSADOR 350.1.13.10 ity of [facility] 4.2.7.2.686 [place] MATERNAL [id number] [facility] & CHILD [address] [place] [address] 2019-12-17 2019-12-17 Outpatient R KASHMIR [facility] [id number] Univers 12:45:00 12:45:00 [facility] 2019-12-05 2019-12-05 Abstract [place] [facility] 1.2.840.114 [id number] Univers 00:00:00 00:00:00 Debbiekiarrameme Au PET AMBASSADOR 350.1.13.10 ity of [facility] 4.2.7.2.686 [place] MATERNAL [id number] [facility] & CHILD [address] [place] [address] 2019-12-04 2019-12-04 Consulting Senior Practice Director Ultrasound, [facility] 1.2 .840.114 [id number] Univers 14:47:35 15:33:44 Visit Joel Walter PET AMBASSADOR 350.1.13.10 ity of [facility] 4.2.7.2.686 [place] MATERNAL [id number] [facility] & CHILD [address] [place] [address] 2019-12-04 2019-12-04 Outpatient P [facility] [id number] Univers 14:45:00 14:45:00 ity of [facility] 2019-11-26 2019-11-26 [facility] 1.2.840.114 [id number] Univers 00:00:00 00:00:00 Debbiememe Au PET AMBASSADOR 350.1.13.10 ity of [facility] 4.2.7.2.686 [place] MATERNAL [id number] [facility] & CHILD [address] [place] [address] 2019-11-20 2019-11-21 Consulting Senior Practice Director 3, [facility] Usg Room UNIVERSIT 1 .2.840.114 [id number] Univers 13:03:36 12:05:38 Visit Guerra Kulwinder Tani Y HEALTH 350.1.13. 10 ity of [place].2.[place] [id number] [address] 2019-11-21 2019-11-21 [facility] 1.2.840.114 [id number] Univers 00:00:00 00:00:00 Roshunda R PET AMBASSADOR [id number] ity of REGIONAL 4.2.7.2.686 [place] MATERNAL [id number] Med ical & CHILD [address] [place] [address] 2019-11-20 2019-11-20 Outpatient P [facility] [id number] Univers 13:00:00 13:00:00 ity of [facility] 2019-11-19 2019-11-19 [facility] 1.2.840.114 [id number] Univers 13:01:02 13:36:35 Roshunda R PET AMBASSADOR 350.1.13.10 ity of Visit REGIONAL 4.2.7.2.686 [place] MATERNAL [id number] [facility] & [address] 2019-11-19 2019-11-19 [facility] [id number] Univers 13:00:00 13:00:00 ROSHUNDA ity o f [facility] 2019-11-05 2019-11-05 [facility] 1.2.840.114 [id number] Univers 14:41:47 15:10:09 Roshunda R PET AMBASSADOR 350.1.13.10 ity of Visit REGIONAL 4.2.7.2.686 [place] MATERNAL [id number] [facility] & CHILD [address] [place] [address] 2019-11-05 2019-11-05 [facility] [id number] Univers 14:45:00 14:45:00 ROSHUNDA ity o f [facility] 2019-10-16 2019-10-16 Telephone MAKENZIE Walter 1.2.840.114 [id number] Univers 00:00:00 00:00:00 Joel Claudio Y HEALTH 350.1.13.10 ity of [place] [id number] [address] 2019-10-15 2019-10-15 Consulting Senior Practice Director Ultrasound, [place] [facility] 1.2 .840.114 [id number] Univers 11:11:03 12:23:00 Visit Elyse Funk PET AMBASSADOR [id number] ity of REGIONAL 4.2.7.2.686 [place] MATERNAL [id number] Med ical & CHILD [address] [place] [address] 2019-10-15 2019-10-15 Outpatient P ELYSE FUNK [facility] [id number] Univers 11:15:00 11:15:00 ELYSE FUNK ity [facility] 2019-10-15 2019-10-15 Abstract [place] [facility] [id number] Univers 00:00:00 00:00:00 Roshunda R PET AMBASSADOR 350.1.13.10 ity of REGIONAL 4.2.7.2.686 Joses[place] as MATERNAL [phone] [facility] ical & CHILD [address] [place] [address] 2019-10-02 2019-10-02 Abstract [place] [id number] Univers 00:00:00 00:00:00 Roshunda R PET AMBASSADOR 350.1.13.10 ity of REGIONAL 4.2.7.2.686 Josesito as MATERNAL [phone] [facility] ical & CHILD [address] [place] [address] 2019-10-01 2019-10-01 Consulting Senior Practice Director Ultrasound, [place] [facility] 1.2 .840.114 [id number] Univers 15:42:03 17:04:07 Visit Evi Paredes PET AMBASSADOR 350.1.13.10 ity of REGIONAL 4.2.7.2.686 Josesito as MATERNAL [phone] [facility] ical & CHILD [address] [facility] 2019-09-24 2019-09-24 Routine [place] 1.2.840.114 [id number] Univers 13:08:42 13:43:37 Roshunda R PET AMBASSADOR 350.1.13.10 ity of Visit REGIONAL 4.2.7.2.686 Josesito as MATERNAL [id number] Med ical & CHILD [address] [place] [address] Results Test Description Test Time Test Comments Results Result Comments Source CBC WITH DIFFERENTIAL 2020-02-25 09:38:00 Test Item Value Reference Range Interpretation Comme nts WBC (test code = 6690-2) See_Comment [A utomated message] The system which ge nerated this result transmit oren reference range: 4.30 - 1 1.10 10*3/?L. The reference r felecia was not used to interpr et this result as normal/abnor mal. RBC (test code = 789-8) See_Comment L [Au tomated message] The system which ge nerated this result transmit oren reference range: 3.93 - 5 .25 10*6/?L. The reference r felecia was not used to interpr et this result as normal/abnor mal. HGB (test code = 718-7) 9.8 g/dL 11.6-15 L HCT (test code = 4544-3) 30.2 % 35.7-45.2 L MCV (test code = 787-2) 87.5 fL 80.6-95.5 MCH (test code = 785-6) 28.4 pg 25.9-32.8 MCHC (test code = 786-4) 32.5 g/dL 31.6-35.1 RDW-SD (test code = 27246-4) 41.3 fL 39-49.9 RDW-CV (test code = 788-0) 13.0 % 12-15.5 PLT (test code = 777-3) See_Comment L [Au tomated message] The system which ge nerated this result transmit oren reference range: 166 - 35 8 10*3/?L. The reference range was not used to interpret th is result as normal/abnormal . MPV (test code = 51275-1) 12.4 fL 9.5-12.9 NRBC/100 WBC (test code = See_Comment [ Automated message] The 2457913679) system which ge nerated this result transmit oren reference range: 0.0 - 10 .0 /100 WBCs. The reference r felecia was not used to interpr et this result as normal/abnor mal. NRBC x10^3 (test code = <0.01 See_Comment [Au tomated message] The 1578771273) system which ge nerated this result transmit oren reference range: 10*3/?L. The reference range was not u sed to interpret this result as normal/abnormal . GRAN MAT (NEUT) % (test code 71.7 % = 770-8) IMM GRAN % (test code = 0.60 % 5848306738) LYMPH % (test code = 736-9) 19.0 % MONO % (test code = 5905-5) 8.2 % EOS % (test code = 713-8) 0.1 % BASO % (test code = 706-2) 0.4 % GRAN MAT x10^3(ANC) (test 7.83 10*3/uL 1.88-7.09 H code = 0261104795) IMM GRAN x10^3 (test code = 0.07 10*3/uL 0-0.06 H 0636531715) LYMPH x10^3 (test code = 2.08 10*3/uL 1.32-3.29 731-0) MONO x10^3 (test code = 0.90 10*3/uL 0.33-0.92 742-7) EOS x10^3 (test code = <0.03 0.03-0.39 L 711-2) BASO x10^3 (test code = 0.04 10*3/uL 0.01-0.07 704-7) Lab Interpretation (test Abnormal code = 03563-5) [facility] I[facility]E [id number] 07:23:44 Test Item Value Reference Range Interpretation Comments RHIG CANDIDATE? No- see comment Patient i s not a (test code = candidate for R hIg- 5055) Patient is Rh Positive.Perfor med at [facility] Laboratory Services - [facility] Blood [address] [place] [address]Vvwc Free: [phone] A No. [id number] [facility] CORD [id number] 02:02:00 Test Item Value Reference Range Interpretation Comments BASE EXCESS, CORD mEq/L (test code = 0195045149) AC PH, CORD (BEAKER) 7.18-7.38 (test code = 1578222838) PC02, CORD (test code See_Comment [Auto mated message] The = 0358310789) system which g enerated this result transmit oren reference range : 32 - 66 mmHg. The refer ence range was not used to interpret this result as normal/abnormal . PO2, CORD (test code Did not result = 5270775988) BICARBONATE, CORD See_Comment [Automate d message] The (test code = system which ge nerated this 6976639142) result transmit oren reference range : 17 - 27 mEq/L. The refe rence range was not used to interpret this result as normal/abnormal . [facility] CORD [id number] 02:01:00 Test Item Value Reference Range Interpretation Comments VENOUS BASE EXCESS, CORD mEq/L (test code = 8401591630) VENOUS PH, CORD (test 7.25-7.45 code = 3645100577) VENOUS PC02, CORD (test See_Comment [Au tomated message] code = 6034343468) The syste m which generated this result transmitted ref erence range: 27 - 49 mmHg. The reference r felecia was not used to interpret this result as normal/abnor mal. VENOUS PO2, CORD (test See_Comment L [Aut omated message] code = 8298703466) The syste m which generated this result transmitted ref erence range: 17 - 41 mmHg. The reference r felecia was not used to interpret this result as normal/abnor mal. VENOUS BICARBONATE, CORD See_Comment [A utomated message] (test code = 5728248262) The system which generated this result transmitted ref erence range: 12 - 29 mEq/L. The reference r felecia was not used to interpret this result as normal/abnor mal. Lab Interpretation (test Abnormal code = 41186-1) [facility] WITH [id number] 23:46:00 Test Item Value Reference Range Interpretation Comments WBC (test code = See_Comment [Automated 3690-2) message] The sy stem which generated this result transmitted reference range : 4.30 - 11.10 10*3/?L. The reference range was not used to interpret this result as normal/abnormal . RBC (test code = See_Comment L [Automated 749-8) message] The sy stem which generated this result transmitted reference range : 3.93 - 5.25 10*6/?L. The reference range was not used to interpret this result as normal/abnormal . HGB (test code = 10.1 g/dL 11.6-15 L 718-7) HCT (test code = 31.5 % 35.7-45.2 L 4544-3) MCV (test code = 88.0 fL 80.6-95.5 787-2) MCH (test code = 28.2 pg 25.9-32.8 785-6) MCHC (test code = 32.1 g/dL 31.6-35.1 786-4) RDW-SD (test code = 42.3 fL 39-49.9 80288-3) RDW-CV (test code = 13.1 % 12-15.5 788-0) PLT (test code = See_Comment L [Automated 777-3) message] The sy stem which generated this result transmitted reference range : 166 - 358 10*3/ ?L. The reference r felecia was not used to interpret this result as normal/abnormal . MPV (test code = 11.6 fL 9.5-12.9 11328-8) NRBC/100 WBC (test See_Comment [Automat ed code = 9608049706) message] The system which generated this result transmitted reference range : 0.0 - 10.0 /100 WBCs. The refer ence range was not u sed to interpret th is result as normal/abnormal . NRBC x10^3 (test code <0.01 See_Comment [Auto mated = 5123267684) message] The s ystem which generated this result transmitted reference range : 10*3/?L. The reference range was not used to interpret this result as normal/abnormal . GRAN MAT (NEUT) % 78.3 % (test code = 770-8) IMM GRAN % (test code 0.50 % = 4445210533) LYMPH % (test code = 14.8 % 736-9) MONO % (test code = 5.9 % 5905-5) EOS % (test code = 0.1 % 713-8) BASO % (test code = 0.4 % 706-2) GRAN MAT x10^3(ANC) 7.23 10*3/uL 1.88-7.09 H (test code = 4721462502) IMM GRAN x10^3 (test 0.05 10*3/uL 0-0.06 code = 3254798672) LYMPH x10^3 (test code 1.37 10*3/uL 1.32-3.29 = 731-0) MONO x10^3 (test code 0.55 10*3/uL 0.33-0.92 = 742-7) EOS x10^3 (test code = <0.03 0.03-0.39 L 711-2) BASO x10^3 (test code 0.04 10*3/uL 0.01-0.07 = 704-7) Lab Interpretation Abnormal (test code = 99761-7) [facility] SY[facility]IL[facility] [id number] 17:48:00 Test Item Value Reference Range Interpretation Comments Syphilis IgG/IgM (test Non-reactive Non-reactive code = 51620-7) JOSSELYN (test code = JOSSELYN) Non-reactive - No serologic evidence of T. pallidum infection. Cannot exclude incubating or early syphilis. Submit a second specimen in 2-4 weeks if syphilis is clinically suspected. Equivocal - Further testing to follow. Reactive - Further testing to follow. Lab Interpretation (test Normal code = 44355-6) [facility]-AB WITH [id number] 17:06:00 Test Item Value Reference Range Interpretation Comments HIV Negative Negative Semi-quantitative (test code = 14683-2) JOSSELYN (test code = Non-reactive for HIV-1 JOSSELYN) antigen and HIV-1/HIV-2 antibodies. ?No laboratory evidence of HIV infection. ?Repeat in 2-4 weeks if acute HIV infection is suspected. [facility]atitis B Surface [id number] 16:57:00 Test Item Value Reference Range Interpretation Comments HBsAg Semi-Quantitative (test code = Negative Negative 5195-3) [facility]Type and Screen - ONCE [id number] 15:47:17 Test Item Value Reference Range Interpretation Comments ABO & RH (test code O POSITIVE Performe d at [facility] = 20) Laboratory Serv [facility] Blood Bank3 [address] [facility] [address]Ckbu Free: [phone] A No. [id number] IAT (test code = Negative Performed a t [facility] 1185) Laboratory Serv [facility] Blood [facility] [address] [place] [address] s [id number] Free: [phone] A No. [id number] [facility] (ID NOW RAPID TESTING)2020-02-24 14:10:00 Test Item Value Reference Range Interpretation Comments SARS-CoV-2 Rapid ID NOW Not Detected Not Detected (test code = 14878-9) JOSSELYN (test code = JOSSELYN) ID NOW COVID-19 Assay is an isothermal nucleic acid amplification test intended for the qualitative detection of nucleic acid from SARS-CoV-2 viral RNA in nasopharyngeal (SENIOR NET SOFTWARE DEVELOPER) specimens. It is used under Emergency Use Authorization (EUA) by FDA. The limit of detection (LOD) of the assay is 125 Genome Equivalents/mL. A positive result is indicative of the presence of SARS-CoV-2 RNA. ?Clinical correlation with patient history and other diagnostic information is necessary to determine patient infection status. A negative (Not Detected) result does not preclude SARS-CoV-2 infection. In patients with clinical symptoms and other tests that are consistent with SARS-CoV-2 infection, negative results should be treated as presumptive negative and a new specimen should be tested with alternative PCR molecular test. Invalid: Please collect a new specimen for repeat patient testing if clinically indicated. Lab Interpretation Normal (test code = 46468-1) [facility] NON-STRESS [id number] 20:05:31NST reactive and reassuring, patient does not feel contractions.[facility] W SPECIFIC [id number] 19:12:00 Test Item Value Reference Range Interpretation Comments POCT U SP GRAV (test code = . 1.005-1.025 3255) POCT PH U (test code = 3254) . 5-8 POCT U LEUK EST (test code = . Negative - Negative 3263) POCT U NIT (test code = 3262) . Negative - Negative POCT U PROT (test code = 3259) trace Negative - Negative POCT U GLU (test code = 3256) negative Negative - Negative POCT U KETONE (test code = 3258) . Negative - Negative POCT U UROBILI (test code = . 0.2-1 3260) POCT U BILI (test code = 3261) . Negative - Negative POCT U BLD (test code = 3257) . Negative - Negative POCT U COLOR (test code = 3266) POCT U APPEAR (test code = 3267) [facility] URINALYSIS W SPECIFIC [id number] 20:03:00 Test Item Value Reference Range Interpretation Comments POCT U SP GRAV (test code = . 1.005-1.025 3255) POCT PH U (test code = 3254) . 5-8 POCT U LEUK EST (test code = . Negative - Negative 3263) POCT U NIT (test code = 3262) . Negative - Negative POCT U PROT (test code = 3259) trace Negative - Negative POCT U GLU (test code = 3256) negative Negative - Negative POCT U KETONE (test code = 3258) . Negative - Negative POCT U UROBILI (test code = . 0.2-1 3260) POCT U BILI (test code = 3261) . Negative - Negative POCT U BLD (test code = 3257) . Negative - Negative POCT U COLOR (test code = 3266) POCT U APPEAR (test code = 3267) [facility] URINALYSIS W SPECIFIC [id number] 20:03:00 Test Item Value Reference Range Interpretation Comments POCT U SP GRAV (test code = . 1.005-1.025 3255) POCT PH U (test code = 3254) . 5-8 POCT U LEUK EST (test code = . Negative - Negative 3263) POCT U NIT (test code = 3262) . Negative - Negative POCT U PROT (test code = 3259) trace Negative - Negative POCT U GLU (test code = 3256) negative Negative - Negative POCT U KETONE (test code = 3258) . Negative - Negative POCT U UROBILI (test code = . 0.2-1 3260) POCT U BILI (test code = 3261) . Negative - Negative POCT U BLD (test code = 3257) . Negative - Negative POCT U COLOR (test code = 3266) POCT U APPEAR (test code = 3267) [facility] URINALYSIS W SPECIFIC [id number] 20:03:00 Test Item Value Reference Range Interpretation Comments POCT U SP GRAV (test code = . 1.005-1.025 3255) POCT PH U (test code = 3254) . 5-8 POCT U LEUK EST (test code = . Negative - Negative 3263) POCT U NIT (test code = 3262) . Negative - Negative POCT U PROT (test code = 3259) trace Negative - Negative POCT U GLU (test code = 3256) negative Negative - Negative POCT U KETONE (test code = 3258) . Negative - Negative POCT U UROBILI (test code = . 0.2-1 3260) POCT U BILI (test code = 3261) . Negative - Negative POCT U BLD (test code = 3257) . Negative - Negative POCT U COLOR (test code = 3266) POCT U APPEAR (test code = 3267) [facility] URINALYSIS W SPECIFIC [id number] 20:03:00 Test Item Value Reference Range Interpretation Comments POCT U SP GRAV (test code = . 1.005-1.025 3255) POCT PH U (test code = 3254) . 5-8 POCT U LEUK EST (test code = . Negative - Negative 3) POCT U NIT (test code = 3262) . Negative - Negative POCT U PROT (test code = 3259) trace Negative - Negative POCT U GLU (test code = 3256) negative Negative - Negative POCT U KETONE (test code = 3258) . Negative - Negative POCT U UROBILI (test code = . 0.2-1 3260) POCT U BILI (test code = 3261) . Negative - Negative POCT U BLD (test code = 3257) . Negative - Negative POCT U COLOR (test code = 3266) POCT U APPEAR (test code = 3267) [facility] URINALYSIS W SPECIFIC [id number] 20:03:00 Test Item Value Reference Range Interpretation Comments POCT U SP GRAV (test code = . 1.005-1.025 3255) POCT PH U (test code = 3254) . 5-8 POCT U LEUK EST (test code = . Negative - Negative 3263) POCT U NIT (test code = 3262) . Negative - Negative POCT U PROT (test code = 3259) trace Negative - Negative POCT U GLU (test code = 3256) negative Negative - Negative POCT U KETONE (test code = 3258) . Negative - Negative POCT U UROBILI (test code = . 0.2-1 3260) POCT U BILI (test code = 3261) . Negative - Negative POCT U BLD (test code = 3257) . Negative - Negative POCT U COLOR (test code = 3266) POCT U APPEAR (test code = 3267) [facility] URINALYSIS W SPECIFIC [id number] 18:16:00 Test Item Value Reference Range Interpretation Comments POCT U SP GRAV (test code = . 1.005-1.025 3255) POCT PH U (test code = 3254) . 5-8 POCT U LEUK EST (test code = . Negative - Negative 3263) POCT U NIT (test code = 3262) . Negative - Negative POCT U PROT (test code = 3259) trace Negative - Negative POCT U GLU (test code = 3256) negative Negative - Negative POCT U KETONE (test code = 3258) . Negative - Negative POCT U UROBILI (test code = . 0.2-1 3260) POCT U BILI (test code = 3261) . Negative - Negative POCT U BLD (test code = 3257) . Negative - Negative POCT U COLOR (test code = 3266) POCT U APPEAR (test code = 3267) [facility] URINALYSIS W SPECIFIC [id number] 18:16:00 Test Item Value Reference Range Interpretation Comments POCT U SP GRAV (test code = . 1.005-1.025 3255) POCT PH U (test code = 3254) . 5-8 POCT U LEUK EST (test code = . Negative - Negative 3263) POCT U NIT (test code = 3262) . Negative - Negative POCT U PROT (test code = 3259) trace Negative - Negative POCT U GLU (test code = 3256) negative Negative - Negative POCT U KETONE (test code = 3258) . Negative - Negative POCT U UROBILI (test code = . 0.2-1 3260) POCT U BILI (test code = 3261) . Negative - Negative POCT U BLD (test code = 3257) . Negative - Negative POCT U COLOR (test code = 3266) POCT U APPEAR (test code = 3267) [facility] URINALYSIS W SPECIFIC [id number] 19:52:00 Test Item Value Reference Range Interpretation Comments POCT U SP GRAV (test code = . 1.005-1.025 3255) POCT PH U (test code = 3254) . 5-8 POCT U LEUK EST (test code = . Negative - Negative 3263) POCT U NIT (test code = 3262) . Negative - Negative POCT U PROT (test code = 3259) trace Negative - Negative POCT U GLU (test code = 3256) negative Negative - Negative POCT U KETONE (test code = 3258) . Negative - Negative POCT U UROBILI (test code = . 0.2-1 3260) POCT U BILI (test code = 3261) . Negative - Negative POCT U BLD (test code = 3257) . Negative - Negative POCT U COLOR (test code = 3266) POCT U APPEAR (test code = 3267) [facility] URINALYSIS W SPECIFIC [id number] 19:27:00 Test Item Value Reference Range Interpretation Comments POCT U SP GRAV (test code = . 1.005-1.025 3255) POCT PH U (test code = 3254) . 5-8 POCT U LEUK EST (test code = . Negative - Negative 3263) POCT U NIT (test code = 3262) . Negative - Negative POCT U PROT (test code = 3259) trace Negative - Negative POCT U GLU (test code = 3256) neg Negative - Negative POCT U KETONE (test code = 3258) . Negative - Negative POCT U UROBILI (test code = . 0.2-1 3260) POCT U BILI (test code = 3261) . Negative - Negative POCT U BLD (test code = 3257) . Negative - Negative POCT U COLOR (test code = 3266) POCT U APPEAR (test code = 3267) Lab Interpretation (test code = Abnormal 70910-5) [facility]
[2022-06-18] MEDS ORDERED: FAMOTIDINE 20 MG/2 ML VIAL IV ONE (18:44)
[2022-06-18] MEDS ORDERED: NA CHLORIDE 0.9% 1,000 ML ONE (18:44)
[2022-06-18] MEDS ORDERED: ONDANSETRON 4 MG/2 ML VIAL ONE (18:44)
[2022-06-18 18:52] LABS: Absolute Lymphocytes (CBC) 3.3 K/uL (0.7-4.9); Hematocrit 42.4 % (36.0-45.0); MCV 92.5 fL (80-100); MPV 8.1 fL (7.6-11.3); RBC Red Blood Cell Count 4.58 M/uL (3.86-4.86)
[2022-06-18 19:07] LABS: Bilirubin Total 0.3 mg/dL (0.2-1.0); Potassium 4.2 mmol/L (3.5-5.1); Protein, Total 7.6 g/dL (6.4-8.2)
[2022-06-18] MEDS ORDERED: KETOROLAC 30 MG/ML INJ ONE (20:15)
--- NOTE | 2022-06-18 20:30 | RAD REPORT ---
EXAM DESCRIPTION: US - Abdomen Exam Limited - 06/18/2022 8:01 pm CLINICAL HISTORY: Abdominal pain. COMPARISON: None. FINDINGS: The gallbladder wall is not thickened. A gallstone is not seen. The biliary tree is normal caliber. IMPRESSION: Unremarkable gallbladder ultrasound.
--- NOTE | 2022-06-18 21:19 | ER ---
Nurse's Notes [facility] Name: Loly Ahn Age: 27 yrs Sex: Female : 1995 Arrival Date: 06/18/2022 Time: 18:19 Bed 6 Private MD: Diagnosis: Upper abdominal pain, unspecified;Nausea with vomiting, unspecified Presentation: 06/18 18:26 Chief complaint: Patient states: Epigastric pain with NV x 3 days, denies diarrhea. vg1 Coronavirus screen: Vaccine status: Patient reports being unvaccinated. Client denies travel out of the [place] in the last 14 days. Ebola Screen: Patient negative for fever greater than or equal to 101.5 degrees Fahrenheit, and additional compatible Ebola Virus Disease symptoms Patient denies exposure to infectious person. Initial Sepsis Screen: Does the patient meet any 2 criteria? No. Patient's initial sepsis screen is negative. Does the patient have a suspected source of infection? No. Patient's initial sepsis screen is negative. Risk Assessment: Do you want to hurt yourself or someone else? Patient reports no desire to harm self or others. Onset of symptoms was June 15, 2022. 18:26 Method Of Arrival: Ambulatory vg1 18:26 Acuity: ILDA 3 vg1 Triage Assessment: 18:27 General: Appears in no apparent distress. uncomfortable, Behavior is calm, cooperative. vg1 Pain: Complains of pain in epigastric area Pain currently is 8 out of 10 on a pain scale. GI: Abdomen is flat, Last BM was June 17, 2022. Reports epigastric pain, nausea, vomiting. 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 - Social history:: Smoking status: Patient denies any tobacco usage or history of. Screenin:29 Abuse screen: Denies threats or abuse. Nutritional screening: No deficits noted. vg1 Tuberculosis screening: No symptoms or risk factors identified. Fall Risk No fall in past 12 months (0 pts). No secondary diagnosis (0 pts). IV access (20 points). Ambulatory Aid- None/Bed Rest/Nurse Assist (0 pts). Gait- Normal/Bed Rest/Wheelchair (0 pts) Mental Status- Oriented to own ability (0 pts). Total Stewart Fall Scale indicates No Risk (0-24 pts). Assessment: 18:40 Reassessment: No changes from previously documented assessment. Patient and/or family ll1 updated on plan of care and expected duration. Pain level reassessed. Patient is alert, oriented x 3, equal unlabored respirations, skin warm/dry/pink. 20:18 Pain: Complains of pain in epigastric area Pain currently is 9 out of 10 on a pain tw5 scale. Quality of pain is described as sharp, stabbing. Neuro: No deficits noted. GI: Abdomen is non-distended, Abd is soft X 4 quads Abdomen is tender to palpation in epigastric area. Derm: No deficits noted. 21:10 Reassessment: Patient states feeling better. Patient states symptoms have improved. tw5 General: Reports "The pain is starting to come down.". Vital Signs: 18:26 BP 120 / 85; Pulse 80; Resp 15; Temp 99.1(O); Pulse Ox 100% ; Weight 63.5 kg; Height 5 vg1 ft. 2 in. (157.48 cm); Pain 8/10; 20:18 BP 118 / 99; Pulse 70; Resp 14; Pulse Ox 99% on R/A; tw5 21:10 Pain 7/10; tw5 21:32 BP 98 / 78; Pulse 70; Resp 14; Pulse Ox 100% on R/A; tw5 18:26 Body Mass Index 25.61 (63.50 kg, 157.48 cm) vg1 ED Course: 18:19 Patient arrived in ED. rg4 18:20 Hilda Gibson FNP-C is [facility]. kb 18:20 Aniceto Palma MD is Attending Physician. kb 18:27 Triage completed. vg1 18:27 Arm band placed on. vg1 18:30 Annabella Anguiano, ALETHEA is Primary Nurse. ll1 18:30 Patient has correct armband on for positive identification. Bed in low position. Call vg1 light in reach. Side rails up X 1. 18:40 Inserted saline lock: 22 gauge in right antecubital area, using aseptic technique. ll1 Blood collected. 19:28 Primary Nurse role handed off by Annabella Anguiano, RN [email or web address] 20:03 US Abdomen Limited In Process Unspecified. EDMS 20:13 Jaki Talley is Primary Nurse. tw5 21:10 Assisted to bathroom. tw5 21:32 No provider procedures requiring assistance completed. IV discontinued, intact, tw5 bleeding controlled, No redness/swelling at site. Pressure dressing applied. Administered Medications: 18:53 Drug: NS 0.9% 1000 ml Route: IV; Rate: 1 bolus; Site: right antecubital; ll1 18:53 Drug: Pepcid (famotidine) 20 mg Route: IVP; Site: right antecubital; ll1 21:11 Follow up: Response: No adverse reaction tw5 18:54 Drug: Zofran (Ondansetron) 4 mg Route: IVP; Site: right antecubital; ll1 21:11 Follow up: Response: No adverse reaction tw5 20:18 Drug: Ketorolac 15 mg Route: IVP; Site: right antecubital; tw5 21:10 Follow up: Pain 7/10 Adult; Response: No adverse reaction; Pain is decreased tw5 Medication: 18:29 VIS not applicable for this client. vg1 Outcome: 21:18 Discharge ordered by . kb 21:32 Discharged to home ambulatory. tw5 21:32 Condition: good 21:32 Discharge instructions given to patient, Instructed on discharge instructions, follow up and referral plans. Demonstrated understanding of instructions, follow-up care, medications, Prescriptions given X 2. 21:33 Patient left the ED. tw5 Signatures: Dispatcher [employer] EDOR Hilda Gibson, SAS SQL DEVELOPER-C SAS SQL DEVELOPER-Dara Franks rg4 Suresh Camarillo RN RN [email or web address] Sofi Dupont RN RN vg1 Annabella Anguiano, RN RN ll1 Jaki Talley tw5
--- NOTE | 2022-06-18 21:19 | EDPHYS ---
Physician Documentation [facility] Name: Loly Ahn Age: 27 yrs Sex: Female : 1995 Arrival Date: 06/18/2022 Time: 18:19 Bed 6 Private MD: ED Physician Aniceto Palma HPI: 06/18 19:29 This 27 yrs old Female presents to ER via Ambulatory with complaints of kb Vomiting, Abdominal Pain. 19:29 The patient presents to the emergency department with nausea, vomiting, abdominal pain. kb Onset: The symptoms/episode began/occurred 3 day(s) ago. Possible causes: unknown. The symptoms are aggravated by movement, The symptoms are alleviated by remaining still. Associated signs and symptoms: Pertinent positives: abdominal pain, nausea, vomiting, Pertinent negatives: diarrhea, dysuria, fever. Severity of symptoms: At their worst the symptoms were moderate in the emergency department the symptoms are unchanged. The patient has not experienced similar symptoms in the past. The patient has not recently seen a physician. 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 - Social history:: Smoking status: Patient denies any tobacco usage or history of. ROS: 19:29 Constitutional: Negative for fever, chills, and weight loss. kb 19:29 Abdomen/GI: Positive for abdominal pain, nausea and vomiting, Negative for diarrhea, constipation, abdominal cramps, abdominal distension, anorexia. 19:29 All other systems are negative. Exam: 19:30 Constitutional: This is a well developed, well nourished patient who is awake, alert, kb and in no acute distress. Head/Face: Normocephalic, atraumatic. ENT: Moist Mucous membranes Cardiovascular: Regular rate and rhythm with a normal S1 and S2. No gallops, murmurs, or rubs. No pulse deficits. Respiratory: Respirations even and unlabored. No increased work of breathing. Talking in full sentences Skin: Warm, dry with normal turgor. Normal color. MS/ Extremity: Pulses equal, no cyanosis. Neurovascular intact. Full, normal range of motion. Neuro: Awake and alert, GCS 15, oriented to person, place, time, and situation. Moves all extremities. Normal gait. Psych: Awake, alert, with orientation to person, place and time. Behavior, mood, and affect are within normal limits. 19:30 Abdomen/GI: Inspection: abdomen appears normal, Bowel sounds: normal, in all quadrants, Palpation: soft, in all quadrants, mild abdominal tenderness, in the epigastric area and left upper quadrant. Vital Signs: 18:26 BP 120 / 85; Pulse 80; Resp 15; Temp 99.1(O); Pulse Ox 100% ; Weight 63.5 kg; Height 5 vg1 ft. 2 in. (157.48 cm); Pain 8/10; 20:18 BP 118 / 99; Pulse 70; Resp 14; Pulse Ox 99% on R/A; tw5 21:10 Pain 7/10; tw5 21:32 BP 98 / 78; Pulse 70; Resp 14; Pulse Ox 100% on R/A; tw5 18:26 Body Mass Index 25.61 (63.50 kg, 157.48 cm) vg1 MDM: 18:30 Patient medically screened. kb 19:30 Data reviewed: vital signs, nurses notes. Data interpreted: Pulse oximetry: on room air kb is 100 %. Interpretation: normal. 21:18 Counseling: I had a detailed discussion with the patient and/or guardian regarding: the kb historical points, exam findings, and any diagnostic results supporting the discharge/admit diagnosis, lab results, radiology results, the need for outpatient follow up, a family practitioner, a claims technician, to return to the emergency department if symptoms worsen or persist or if there are any questions or concerns that arise at home. 06/18 18:28 Order name: CBC with Diff; Complete Time: 18:56 kb 06/18 18:28 Order name: CMP; Complete Time: 19:13 kb 06/18 18:28 Order name: Lipase; Complete Time: 19:13 kb 06/18 18:44 Order name: US Abdomen Limited; Complete Time: 20:37 kb 06/18 18:28 Order name: IV Saline Lock; Complete Time: 18:31 kb 06/18 18:28 Order name: Labs collected and sent; Complete Time: 18:31 kb Administered Medications: 18:53 Drug: NS 0.9% 1000 ml Route: IV; Rate: 1 bolus; Site: right antecubital; ll1 18:53 Drug: Pepcid (famotidine) 20 mg Route: IVP; Site: right antecubital; ll1 21:11 Follow up: Response: No adverse reaction tw5 18:54 Drug: Zofran (Ondansetron) 4 mg Route: IVP; Site: right antecubital; ll1 21:11 Follow up: Response: No adverse reaction tw5 20:18 Drug: Ketorolac 15 mg Route: IVP; Site: right antecubital; tw5 21:10 Follow up: Pain 02/21 Adult; Response: No adverse reaction; Pain is decreased tw5 Disposition Summary: 06/18/22 21:18 Discharge Ordered Location: Home kb Condition: Stable kb Diagnosis - Upper abdominal pain, unspecified kb - Nausea with vomiting, unspecified kb Followup: kb - With: Emergency Department - When: As needed - Reason: Worsening of condition Followup: kb - With: Private Physician - When: 2 - 3 days - Reason: Recheck today's complaints, Continuance of care, Re-evaluation by your physician Discharge Instructions: - Discharge Summary Sheet kb - Nausea and Vomiting, Adult, [id number] kb - Abdominal Pain, Adult, [id number] kb Forms: - Medication Reconciliation Form kb - Thank You Letter kb - Antibiotic Education kb - Prescription Opioid Use kb Prescriptions: - Zofran 4 mg Oral Tablet - take 1 tablet by ORAL route every 6 hours As needed; 20 tablet; Refills: 0, kb Product Selection Permitted - dicyclomine 20 mg Oral Tablet - take 1 tablet by ORAL route 4 times per day As needed; 20 tablet; Refills: 0, kb Product Selection Permitted Addendum: 06/21/2022 14:57 Co-signature as Attending Physician, Aniceto Palma MD. r n Signatures: Dispatcher [employer] Hilda Vasquez, PENNIE SILVA-Aniceto Lira MD MD rn Garcia, Victoria RN RN vg1 Annabella Anguiano RN RN ll1 Jaki Talley tw5
[2022-06-18 21:38] VITALS: TEMP 99.1
[2022-06-18 21:41] VITALS: BP 98/78; O2SAT 100
== END 2022-06-18 21:33 | disposition home or self-care (01) ==
LOC: ER 18:16
DX: R11.2 Nausea with vomiting, unspecified (principal); R10.10 Upper abdominal pain, unspecified
CPT/HCPCS: 85025; 36415; 83690; 80053; 76705; 96375; 96374; 99284; J7030; J2405